=== PATIENT | male | born 1975 | race Caucasian/White ===

== ENCOUNTER → 2020-12-20 | Day surgery (SDC) | payer OTHER ==
[~2020-12-20] MED LIST: AMLODIPINE BESYL5 MG PO; ATORVASTATIN CA20 MG PO; COLCRYS0.6 MG PO; FENOGLIDE40 MG PO; HYDROCODON-ACE1 EAC2 PO; IBU800 MG PO; VITAMIN D250000 UNIT PO; ZYLOPRIM 300 M300 MG PO
[2020-12-20 07:33] LABS: HEMOGLOBIN 14.8 gm/dl (14.0-17.5); RED BLOOD COUNT 5.3 M/UL (4.20-5.50); WHITE BLOOD COUNT 7.1 K/UL (4.5-11.0)
[2020-12-20 07:43] LABS: BUN/CREATININE RATIO 13 (0-10)
== END | disposition home or self-care (01) ==
LOC: OR 12-08 08:45
PROVIDERS: Orthopaedic Surgery
PROC: 0SBD4ZZ Excision of Left Knee Joint, Percutaneous Endoscopic Approach (ICD-10-PCS; principal; 2020-12-20 09:15)
DX: S83.282A Other tear of lateral meniscus, current injury, left knee, initial encounter (principal); S83.242A Other tear of medial meniscus, current injury, left knee, initial encounter; X58.XXXA Exposure to other specified factors, initial encounter; M23.009 Cystic meniscus, unspecified meniscus, unspecified knee; M94.262 Chondromalacia, left knee; M17.12 Unilateral primary osteoarthritis, left knee; I10 Essential (primary) hypertension; E66.01 Morbid (severe) obesity due to excess calories; F41.9 Anxiety disorder, unspecified
CPT/HCPCS: 80048; 85025; J0171; J0690; J1100; J1885; J2001; J2250; J2405; J2550; J2704; J3010; J7120

== ENCOUNTER → 2022-03-06 | Outpatient (CLI) | payer BC | LOC: HEART 5 13:22 | DX: R05.9 Cough, unspecified (principal) | CPT/HCPCS: 94010 ==

== ENCOUNTER → 2022-03-13 | Outpatient (CLI) | payer BC | LOC: HEART 5 13:00 | DX: Z82.49 Family history of ischemic heart disease and other diseases of the circulatory system (principal) ==